=== PATIENT | male | born 1960 | race Caucasian/White ===

== ENCOUNTER → 2024-11-26 07:25 | Outpatient (REF) | payer MEDICARE, SELFPAY | LOC: RCS 07:25 | PROVIDERS: ATTENDING PHYSICIAN Internal Medicine Cardiovascular Disease; FAMILY PHYSICIAN Emergency Medicine | DX: I25.10 Atherosclerotic heart disease of native coronary artery without angina pectoris (principal); I51.7 Cardiomegaly | CPT/HCPCS: 93306; 93356 ==

== ENCOUNTER → 2024-12-27 09:14 | Outpatient (REF) | payer MEDICARE, SELFPAY | LOC: HWRAD 09:14 | PROVIDERS: ATTENDING PHYSICIAN Specialist; FAMILY PHYSICIAN Emergency Medicine | DX: R79.89 Other specified abnormal findings of blood chemistry (principal) | CPT/HCPCS: 76770 ==

== ENCOUNTER 2025-07-04 06:22 | Day surgery (SDC) | payer MEDICARE, SELFPAY ==
[2025-07-04 07:47] LABS: Glucose - Point of Care 112 mg/dl (70-99)
== END 2025-07-04 09:03 | disposition home or self-care (01) ==
LOC: GI 06:22
PROVIDERS: ATTENDING PHYSICIAN Internal Medicine Gastroenterology
DX: Z12.11 Encounter for screening for malignant neoplasm of colon (principal); K64.8 Other hemorrhoids; K57.30 Diverticulosis of large intestine without perforation or abscess without bleeding; Z86.0100 Personal history of colon polyps, unspecified
CPT/HCPCS: G0105; 82962

== ENCOUNTER → 2025-08-19 14:08 | Outpatient (REF) | payer MEDICARE, SELFPAY | LOC: EMG 14:08 | PROVIDERS: ATTENDING PHYSICIAN Family Medicine | DX: R20.2 Paresthesia of skin (principal); R20.0 Anesthesia of skin; G56.02 Carpal tunnel syndrome, left upper limb | CPT/HCPCS: 95886; 95909 ==

== ENCOUNTER → 2025-08-26 06:25 | Outpatient (REF) | payer MEDICARE, SELFPAY | LOC: RAD 06:25 | PROVIDERS: ATTENDING PHYSICIAN Family Medicine | DX: Z13.6 Encounter for screening for cardiovascular disorders (principal); F17.290 Nicotine dependence, other tobacco product, uncomplicated | CPT/HCPCS: 76770 ==